=== PATIENT | male | born 1940 | race Caucasian/White ===

== ENCOUNTER 2017-10-31 00:04 | Inpatient (IN) | payer MEDICARE, BC ==
[~2017-10-31] VITALS: Ht 177.8 cm; Wt 95.3 kg
--- NOTE | ~2017-10-31 | EC ---
PATIENT:TRACE ALMAGUER DATE OF SERVICE: 11/01/17 SEX: M MEDICAL RECORD: [id number] DATE OF : 40 LOCATION:[facility] AGE OF PATIENT: 77 ADMISSION DATE: 11/01/17 REFERRING PHYSICIAN: INTERPRETING PHYSICIAN: BETHANY THAO MD ECHOCARDIOGRAM REPORT ECHO CHARGES 4 ECHO COMPLETE CLINICAL DIAGNOSIS: EVAL LV FUNCTION, HX OF CAD/STENT ECHOCARDIOGRAPHIC MEASUREMENTS (adult normal given) AC root (d.<3.7cm) 3.5 cm LV Septum d (<1.2 cm> 1.5 cm Valve Excursion 1.6 cm LV Septum (systole) 1.7 cm Left Atria (s.<4.0cm> 4.4 cm LVPW d(<1.2cm) 1.4 cm RV (d.<2.3cm) 4.2 cm LVPW (sytole) 1.6 cm LV diastole(<5.6CM) 5.6 cm MV E-F(>70mm/sec) cm LV systole 4.7 cm LVOT Diameter 1.5 cm MV exc.(>10mm) cm Est.ejection fraction (50-75%) % Pericardial Effusion N DOPPLER: LVIT cm/sec A 84.0 cm/sec E 52.0 cm/sec LA cm/sec RVSP mmHg LVOT 96 cm/sec AOP1/2T m/s Asc. Ao 140 cm/sec RVOT cm/sec RA cm/sec PA cm/sec AV Gradient Peak 7.89 mmHg AV Mean 4.03 mmHg AV Area 1.2 cm MV Gradient Peak 5.0 mmHg MV Mean 1.80 mmHg MV Area cm COMMENTS: Column Precaster: Yesica MORENO Tester Electronic Scale: 2 Dr. Baires TAPE# PACS DATE OF SERVICE: 11/01/2017 PROCEDURE: Echocardiogram. FINDINGS: 1. Left ventricle chamber size is within normal limits. Left ventricular systolic function is moderately reduced, overall ejection fraction 35% to 40%. There is global hypokinesis throughout all segments with no discrete wall motion abnormalities. 2. Left atrium is enlarged at 4.4 cm. Right atrium and right ventricle chamber ECHOCARDIOGRAM REPORT [id number] TRACE ALMAGUER sizes are as well mildly dilated. 3. Valvular structures have normal structure and motion. 4. Doppler interrogation reveals no significant valvular insufficiency or stenosis. 5. No evidence of pericardial effusion or left ventricular thrombus. TRANSINT:[id number] Voice Confirmation ID: [id number] DOCUMENT ID: [id number] BETHANY THAO MD at 1800 CC: [id number] DICTATION DATE: 11/02/17924 TECHNICAL SERVICES ANALYST: 11/02/17 1100 DIS IN 11/07/17 [place] [id number] [place] [id number]
[2017-11-01 02:44] VITALS: BP 131/72; BMI 30.1
[2017-11-01] MEDS ORDERED: FUROSEMIDE40 MG PO (07:20)
[2017-11-01] MEDS ORDERED: METOPROLOL TART25 MG PO (07:23)
[2017-11-01] MEDS ORDERED: PROTONIX40 MG PO (07:24)
[2017-11-01] MEDS ORDERED: ALDACTONE25 MG PO (07:25)
[2017-11-01] MEDS ORDERED: SYMBICORT 16010.2 GM INH (07:27)
[2017-11-01] MEDS ORDERED: FLOMAX0.4 MG PO (07:28)
[2017-11-01] MEDS ORDERED: REQUIP0.25 MG PO (07:29)
[2017-11-01] MEDS ORDERED: COMBIVENT RESPIM4 GM INH (07:29)
[2017-11-01] MEDS ORDERED: LEVOXYL25 MCG PO (07:33)
[2017-11-01] MEDS ORDERED: ULTRAM50 MG PO (07:34)
[2017-11-01] MEDS ORDERED: ATARAX 25 MG TA25 MG PO (07:36)
[2017-11-01] MEDS ORDERED: ZOFRAN8 MG PO (07:37)
[2017-11-01] MEDS ORDERED: ZOLOFT100 MG PO (07:38)
[2017-11-01] MEDS ORDERED: BAYER CHEWABLE81 MG PO (07:39)
[2017-11-01] MEDS ORDERED: THERAGRAN M [BK1 TAB PO (07:40)
[2017-11-01] MEDS ORDERED: COLACE100 MG PO (07:42)
[2017-11-01] MEDS ORDERED: SEROQUEL50 MG PO (07:43)
[2017-11-01] MEDS ORDERED: MELATONIN5 MG PO (07:44)
[2017-11-01] MEDS ORDERED: LEVAQUIN500 MG PO (07:44)
[2017-11-01] MEDS ORDERED: LIPITOR10 MG PO (07:45)
[2017-11-01] MEDS ORDERED: NYSTATIN ORAL SU5 ML PO (07:46)
[2017-11-01 08:38] VITALS: BP 128/73
[2017-11-01 09:52] LABS: APTT 28.1 SECONDS (22.8-39.4); BASOPHILS 0.3 % (0-2); EOSINOPHILS 1.1 % (0-7); HEMATOCRIT 38.3 % (42.0-54.0); HEMOGLOBIN 12.4 g/dL (13.5-17.5); IMMATURE GRANULOCYTES 0.4 % (0-5); INR 1.03 (0.85-1.17); LYMPHOCYTES 24.6 % (15-50); MCH 26.6 pg (26.0-34.0); MCHC 32.4 g/dL (31.0-37.0); MEAN PLATELET VOLUME 9.7 fL (7.4-10.4); MONOCYTES 8.2 % (2-11); NEUTROPHILS 65.4 % (40-80); PLATELET COUNT 250 10x3/uL (130-400); PROTIME 13.1 SECONDS (11.6-15.0); RBC 4.67 10x6/uL (4.20-6.10); RDW 16.8 % (11.5-14.5); WBC 11.1 10x3/uL (4.8-10.8)
[2017-11-01 10:05] LABS: ALBUMIN 2.8 g/dL (3.4-5.0); ALKALINE PHOSPHATASE 202 U/L (46-116); ALT (SGPT) 55 U/L (10-68); CALC OSMOLALITY 279 mosm/kg (275-300); CALCIUM 9.2 mg/dL (8.5-10.1); CARBON DIOXIDE 31.2 mmol/L (21.0-32.0); CHLORIDE - SERUM 101 mmol/L (98-107); CREATININE - SERUM 0.9 mg/dL (0.6-1.3); GLUCOSE 106 mg/dL (74-106); POTASSIUM - SERUM 4.2 mmol/L (3.5-5.1); PROTEIN - SERUM 7.4 g/dL (6.4-8.2); SODIUM 139 mmol/L (136-145); UREA NITROGEN 19 mg/dL (7-18); eGFR NON AFRICAN AMERICAN 87 mL/min (90-120)
[2017-11-01 10:44] VITALS: BMI 30.1
[2017-11-01 10:49] VITALS: Ht 177.8 cm; Wt 95.3 kg
[2017-11-01 11:46] VITALS: BP 140/70
[2017-11-01 13:27] LABS: HEMATOCRIT 37.6 % (42.0-54.0); HEMOGLOBIN 12.2 g/dL (13.5-17.5)
[2017-11-01 16:25] VITALS: BP 127/68
[2017-11-01 18:52] LABS: HEMATOCRIT 38.2 % (42.0-54.0); HEMOGLOBIN 12.4 g/dL (13.5-17.5)
[2017-11-01 20:00] VITALS: BP 119/66
[2017-11-02] VITALS: BP 103/61
[2017-11-02 01:27] LABS: HEMATOCRIT 37.9 % (42.0-54.0); HEMOGLOBIN 12.2 g/dL (13.5-17.5)
[2017-11-02 04:00] VITALS: BP 132/69
[2017-11-02 04:13] LABS: BASOPHILS 0.3 % (0-2); EOSINOPHILS 1.7 % (0-7); HEMATOCRIT 36.7 % (42.0-54.0); HEMOGLOBIN 11.7 g/dL (13.5-17.5); IMMATURE GRANULOCYTES 0.2 % (0-5); LYMPHOCYTES 20.3 % (15-50); MCH 26.6 pg (26.0-34.0); MCHC 31.9 g/dL (31.0-37.0); MCV 83.4 fL (80.0-100.0); MEAN PLATELET VOLUME 9.7 fL (7.4-10.4); MONOCYTES 8.2 % (2-11); NEUTROPHILS 69.3 % (40-80); PLATELET COUNT 242 10x3/uL (130-400); RDW 16.6 % (11.5-14.5); WBC 9.6 10x3/uL (4.8-10.8)
[2017-11-02 04:29] LABS: INR 1.07 (0.85-1.17); PROTIME 13.5 SECONDS (11.6-15.0)
[2017-11-02 04:32] LABS: CALC OSMOLALITY 284 mosm/kg (275-300); CALCIUM 8.9 mg/dL (8.5-10.1); CARBON DIOXIDE 29.3 mmol/L (21.0-32.0); CHLORIDE - SERUM 104 mmol/L (98-107); GLUCOSE 144 mg/dL (74-106); POTASSIUM - SERUM 3.7 mmol/L (3.5-5.1); SODIUM 141 mmol/L (136-145); UREA NITROGEN 16 mg/dL (7-18); eGFR NON AFRICAN AMERICAN 77 mL/min (90-120)
[2017-11-02 04:37] LABS: CHOL - HDL RATIO 3.8 ratio (2.3-4.9); LDL-HDL RATIO 2.4 ratio (1.5-3.5)
[2017-11-02 08:06] VITALS: BP 107/49
[2017-11-02 13:16] LABS: HEMOGLOBIN 12.1 g/dL (13.5-17.5)
[2017-11-02 20:00] VITALS: BP 133/77
[2017-11-02 21:59] LABS: HEMATOCRIT 40.2 % (42.0-54.0); HEMOGLOBIN 12.7 g/dL (13.5-17.5)
[2017-11-03] VITALS (8 sets, daily range): BP systolic 92–131; BP diastolic 52–73
[2017-11-03 05:04] LABS: BASOPHILS 0.2 % (0-2); EOSINOPHILS 1.1 % (0-7); HEMATOCRIT 36.9 % (42.0-54.0); HEMOGLOBIN 11.7 g/dL (13.5-17.5); IMMATURE GRANULOCYTES 0.4 % (0-5); LYMPHOCYTES 25.1 % (15-50); MCH 26.5 pg (26.0-34.0); MCHC 31.7 g/dL (31.0-37.0); MCV 83.5 fL (80.0-100.0); MEAN PLATELET VOLUME 9.5 fL (7.4-10.4); MONOCYTES 8.9 % (2-11); NEUTROPHILS 64.3 % (40-80); PLATELET COUNT 258 10x3/uL (130-400); RBC 4.42 10x6/uL (4.20-6.10); RDW 16.8 % (11.5-14.5); WBC 9.7 10x3/uL (4.8-10.8)
[2017-11-03 05:18] LABS: ALBUMIN 2.5 g/dL (3.4-5.0); ALKALINE PHOSPHATASE 189 U/L (46-116); ALT (SGPT) 44 U/L (10-68); BILIRUBIN - TOTAL 0.31 mg/dL (0.2-1.3); CALC OSMOLALITY 279 mosm/kg (275-300); CALCIUM 8.8 mg/dL (8.5-10.1); CARBON DIOXIDE 31.7 mmol/L (21.0-32.0); CHLORIDE - SERUM 103 mmol/L (98-107); GLUCOSE 101 mg/dL (74-106); PROTEIN - SERUM 6.7 g/dL (6.4-8.2); SODIUM 140 mmol/L (136-145); UREA NITROGEN 16 mg/dL (7-18); eGFR NON AFRICAN AMERICAN 77 mL/min (90-120)
[2017-11-03 10:13] LABS: CA 19-9 103 U/mL (0-35); CEA 7.7 ng/mL (0.0-4.7)
[2017-11-03 12:56] LABS: HEMATOCRIT 39.7 % (42.0-54.0); HEMOGLOBIN 12.6 g/dL (13.5-17.5)
[2017-11-03 15:12] LABS: HEPATITIS C ANTIBODY <0.1 (0.0-0.9)
[2017-11-03 19:24] LABS: HEMATOCRIT 36.8 % (42.0-54.0)
[2017-11-04 04:00] VITALS: BP 102/59
[2017-11-04 06:15] LABS: HEMATOCRIT 35.1 % (42.0-54.0); HEMOGLOBIN 11.2 g/dL (13.5-17.5)
[2017-11-04 09:14] VITALS: BP 120/69
[2017-11-04 12:52] LABS: HEMATOCRIT 38.1 % (42.0-54.0); HEMOGLOBIN 11.8 g/dL (13.5-17.5)
[2017-11-04 13:54] VITALS: BP 129/58
[2017-11-04 16:25] VITALS: BP 151/70
[2017-11-04 18:40] LABS: HEMOGLOBIN 11.2 g/dL (13.5-17.5)
[2017-11-05] VITALS: BP 117/62
[2017-11-05 01:05] LABS: HEMATOCRIT 34.2 % (42.0-54.0); HEMOGLOBIN 10.8 g/dL (13.5-17.5)
[2017-11-05 04:00] VITALS: BP 120/67
[2017-11-05 06:42] LABS: HEMATOCRIT 36.3 % (42.0-54.0); HEMOGLOBIN 11.4 g/dL (13.5-17.5)
[2017-11-05 08:00] VITALS: BP 132/68
[2017-11-05 11:25] LABS: ALBUMIN 2.9 g/dL (3.4-5.0); ALKALINE PHOSPHATASE 225 U/L (46-116); ALT (SGPT) 41 U/L (10-68); CALC OSMOLALITY 286 mosm/kg (275-300); CALCIUM 8.7 mg/dL (8.5-10.1); CARBON DIOXIDE 31.6 mmol/L (21.0-32.0); CHLORIDE - SERUM 106 mmol/L (98-107); POTASSIUM - SERUM 3.3 mmol/L (3.5-5.1); PROTEIN - SERUM 6.3 g/dL (6.4-8.2); SODIUM 143 mmol/L (136-145); UREA NITROGEN 10 mg/dL (7-18); eGFR NON AFRICAN AMERICAN 77 mL/min (90-120)
[2017-11-05 11:26] LABS: GLUCOSE 155 mg/dL (74-106)
[2017-11-05 11:52] VITALS: BP 132/52
[2017-11-05 12:39] LABS: BASOPHILS 0.5 % (0-2); EOSINOPHILS 1.3 % (0-7); HEMATOCRIT 36.6 % (42.0-54.0); HEMOGLOBIN 11.1 g/dL (13.5-17.5); IMMATURE GRANULOCYTES 0.4 % (0-5); LYMPHOCYTES 22.2 % (15-50); MCH 25.9 pg (26.0-34.0); MCHC 30.3 g/dL (31.0-37.0); MCV 85.3 fL (80.0-100.0); MEAN PLATELET VOLUME 10.1 fL (7.4-10.4); MONOCYTES 7.8 % (2-11); NEUTROPHILS 67.8 % (40-80); PLATELET COUNT 229 10x3/uL (130-400); RBC 4.29 10x6/uL (4.20-6.10); RDW 16.7 % (11.5-14.5); WBC 9.3 10x3/uL (4.8-10.8)
[2017-11-05 15:39] VITALS: BP 134/57
[2017-11-05 20:03] LABS: HEMATOCRIT 35.7 % (42.0-54.0)
[2017-11-06] VITALS: BP 102/41
[2017-11-06 04:00] VITALS: BP 143/64
[2017-11-06 07:40] LABS: BASOPHILS 0.3 % (0-2); EOSINOPHILS 0.6 % (0-7); HEMATOCRIT 37.1 % (42.0-54.0); HEMOGLOBIN 11.4 g/dL (13.5-17.5); IMMATURE GRANULOCYTES 0.2 % (0-5); LYMPHOCYTES 16.2 % (15-50); MCH 26.3 pg (26.0-34.0); MCHC 30.7 g/dL (31.0-37.0); MCV 85.5 fL (80.0-100.0); MONOCYTES 6.8 % (2-11); NEUTROPHILS 75.9 % (40-80); PLATELET COUNT 217 10x3/uL (130-400); RBC 4.34 10x6/uL (4.20-6.10); RDW 16.7 % (11.5-14.5); WBC 11.6 10x3/uL (4.8-10.8)
[2017-11-06 07:51] LABS: ALBUMIN 2.6 g/dL (3.4-5.0); ALKALINE PHOSPHATASE 214 U/L (46-116); ALT (SGPT) 32 U/L (10-68); BILIRUBIN - TOTAL 0.43 mg/dL (0.2-1.3); CALC OSMOLALITY 285 mosm/kg (275-300); CALCIUM 8.8 mg/dL (8.5-10.1); CARBON DIOXIDE 32.1 mmol/L (21.0-32.0); CHLORIDE - SERUM 106 mmol/L (98-107); CREATININE - SERUM 0.9 mg/dL (0.6-1.3); GLUCOSE 108 mg/dL (74-106); PROTEIN - SERUM 6.4 g/dL (6.4-8.2); SODIUM 144 mmol/L (136-145); UREA NITROGEN 8 mg/dL (7-18); eGFR NON AFRICAN AMERICAN 87 mL/min (90-120)
[2017-11-06 07:56] LABS: POTASSIUM - SERUM 3.8 mmol/L (3.5-5.1)
[2017-11-06 09:42] VITALS: BP 129/77
[2017-11-06 13:00] LABS: HEMOGLOBIN 10.7 g/dL (13.5-17.5)
[2017-11-06 13:19] VITALS: BP 129/60
[2017-11-06 17:02] VITALS: BP 129/74
[2017-11-06 18:54] LABS: HEMATOCRIT 35.4 % (42.0-54.0); HEMOGLOBIN 11.2 g/dL (13.5-17.5)
[2017-11-06 18:56] LABS: APPEARANCE CLEAR (CLEAR); BILIRUBIN NEGATIVE (NEGATIVE); COLOR YELLOW (YELLOW); GLUCOSE NEGATIVE (NEGATIVE); KETONE NEGATIVE (NEGATIVE); NITRITE NEGATIVE (NEGATIVE); PROTEIN NEGATIVE (NEGATIVE); SPECIFIC GRAVITY 1.025 (1.005-1.020); UROBILINOGEN NORMAL (NORMAL)
[2017-11-06 18:57] LABS: BACTERIA MODERATE /hpf (NONE SEEN); RED CELLS - URINE 0-5 /hpf (0-5); WHITE CELLS - URINE >50 /hpf (0-5)
[2017-11-07] VITALS: BP 98/53
[2017-11-07 04:00] VITALS: BP 116/58
[2017-11-07 05:29] LABS: BASOPHILS 0.3 % (0-2); EOSINOPHILS 1.4 % (0-7); HEMATOCRIT 33.6 % (42.0-54.0); HEMOGLOBIN 10.4 g/dL (13.5-17.5); IMMATURE GRANULOCYTES 0.3 % (0-5); LYMPHOCYTES 23.1 % (15-50); MCH 26.3 pg (26.0-34.0); MCV 84.8 fL (80.0-100.0); MEAN PLATELET VOLUME 10.2 fL (7.4-10.4); MONOCYTES 7.9 % (2-11); PLATELET COUNT 213 10x3/uL (130-400); RBC 3.96 10x6/uL (4.20-6.10); RDW 16.7 % (11.5-14.5)
[2017-11-07 05:54] LABS: ALBUMIN 2.4 g/dL (3.4-5.0); ALKALINE PHOSPHATASE 206 U/L (46-116); ALT (SGPT) 28 U/L (10-68); CALC OSMOLALITY 280 mosm/kg (275-300); CALCIUM 8.2 mg/dL (8.5-10.1); CARBON DIOXIDE 31.6 mmol/L (21.0-32.0); CHLORIDE - SERUM 106 mmol/L (98-107); CREATININE - SERUM 0.9 mg/dL (0.6-1.3); GLUCOSE 94 mg/dL (74-106); POTASSIUM - SERUM 3.3 mmol/L (3.5-5.1); PROTEIN - SERUM 5.9 g/dL (6.4-8.2); SODIUM 142 mmol/L (136-145); UREA NITROGEN 8 mg/dL (7-18); eGFR NON AFRICAN AMERICAN 87 mL/min (90-120)
[2017-11-07 08:38] VITALS: BP 103/62
[2017-11-07 12:28] VITALS: BP 111/68
[2017-11-07 12:55] LABS: HEMATOCRIT 34.7 % (42.0-54.0); HEMOGLOBIN 10.9 g/dL (13.5-17.5)
[2017-11-07] MEDS ORDERED: NYSTATIN ORAL SU5 ML PO (14:07)
== END 2017-11-07 20:10 | disposition home health service (06) | DRG 843 ==
LOC: D.M2 00:04 → D.MS 11-01 02:00
PROVIDERS: Family Medicine; Internal Medicine Gastroenterology; Internal Medicine Nephrology; Radiology Diagnostic Radiology
PROC: 0FB03ZX Excision of Liver, Percutaneous Approach, Diagnostic (ICD-10-PCS; principal; 2017-11-02 10:40)
PROC: 0DB98ZX Excision of Duodenum, Via Natural or Artificial Opening Endoscopic, Diagnostic (ICD-10-PCS; 2017-11-05)
PROC: 0DB68ZX Excision of Stomach, Via Natural or Artificial Opening Endoscopic, Diagnostic (ICD-10-PCS; 2017-11-05)
PROC: 0DB38ZX Excision of Lower Esophagus, Via Natural or Artificial Opening Endoscopic, Diagnostic (ICD-10-PCS; 2017-11-05)
PROC: 0DBK8ZZ Excision of Ascending Colon, Via Natural or Artificial Opening Endoscopic (ICD-10-PCS; 2017-11-05)
PROC: 0DBL8ZZ Excision of Transverse Colon, Via Natural or Artificial Opening Endoscopic (ICD-10-PCS; 2017-11-05)
PROC: 0DBN8ZZ Excision of Sigmoid Colon, Via Natural or Artificial Opening Endoscopic (ICD-10-PCS; 2017-11-05)
PROC: 0W3P8ZZ Control Bleeding in Gastrointestinal Tract, Via Natural or Artificial Opening Endoscopic (ICD-10-PCS; 2017-11-05)
DX: C7B.8 Other secondary neuroendocrine tumors (principal); J96.21 Acute and chronic respiratory failure with hypoxia; D62 Acute posthemorrhagic anemia; N17.9 Acute kidney failure, unspecified; K21.9 Gastro-esophageal reflux disease without esophagitis; J44.9 Chronic obstructive pulmonary disease, unspecified; F03.90 Unspecified dementia, unspecified severity, without behavioral disturbance, psychotic disturbance, mood disturbance, and anxiety; I25.10 Atherosclerotic heart disease of native coronary artery without angina pectoris; Z95.5 Presence of coronary angioplasty implant and graft; Z87.891 Personal history of nicotine dependence; K63.5 Polyp of colon; K64.4 Residual hemorrhoidal skin tags; K64.8 Other hemorrhoids; K29.70 Gastritis, unspecified, without bleeding; K29.80 Duodenitis without bleeding; K20.9 Esophagitis, unspecified; K57.30 Diverticulosis of large intestine without perforation or abscess without bleeding